=== PATIENT | female | born 1995 | race American Indian/Alaskan Native ===

== ENCOUNTER 2017-01-20 16:05 | Emergency (ER) | payer SELFPAY ==
[2017-01-20 16:14] VITALS: BP 145/79
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
== END 2017-01-20 18:09 | disposition home or self-care (01) ==
LOC: ED 16:05
DX: M54.16 Radiculopathy, lumbar region (principal)
CPT/HCPCS: 99282